=== PATIENT | female | born 1970 | race Two or more races ===

== ENCOUNTER 2018-09-18 15:00 | Outpatient (AMBR) | payer MEDICAID, SELFPAY ==
--- NOTE | 2018-09-03 14:06 | PTNOTE_ITS ---
PT OP Initial Eval Patient Information Visit Reasons: arm Medical Diagnosis: M62.81 Treatment Dx #1: R UE pain Start of Care: 09/03/18 Date of Onset: 3 yrs ago Initial Assessment Subjective Pt is 47 yr old japanese speaking female s/p R lung cancerous resection R lung x3 yrs. Since then she has had R shoulder pain and difficulty lifting the UE. Today the pain level is 6/10 that increases to 8/10 sometimes. She had been working in the [employer] when the cancer was found. PMH: allergies, HTN Imaging: CT of chest in EMR Pt goal: less shoulder pain and improved OH reach. Objective R shoulder AROM: FF: 85 deg Abd: 85 deg ER: 75 deg HBB: to R glute with pain Strength: 3-/5 in all planes PROM: end-range pain with capsular tightness C/S AROM: L rot: 50 deg, R 46 deg Extension: 30 deg with pain R SB: 14 deg, L SB: 13 deg R ULTT medial n: positive TTP: R upper quadrant, along incision scar moderate Assessment Pt presents with decreased shoulder ROM, strength and OH reach limited by pain and R UQ tightness in axilla region s/p cancerous excision thoracotomy. She has incision scar tightness and TTP that limits shoulder ROM. Pt has C/S ROM limitations with rotation and extension. Short Term and [employer] Goals 1. Ind with HEP 2. Improved AROM of R shoulder to 135 deg FF, 125 deg abduction and 90 deg ER 3. Improved HBB ROM to L3 4. Pt will reach OH x10 with <=4/10 pain Treatment Plan 1. Manual therapy 2. Therex 3. Modalities as indicated, moist heat pack, ice, electrical stimulation, Frequency and Duration 2x a week for 6 weeks Certification Dates: 09/03/18 to 12/04/18 Office Procedures PT Procedures PT Date of Service: 09/03/18 OP PT Eval Mod Complex 30 minutes: Yes
--- NOTE | 2018-09-08 18:48 | PT.ODAYNRPT ---
PT Outpatient Daily Note Date of Service: September 08, 2018 OP Daily Note Visit Reasons: arm Outpatient Physical Therapy Treatment Date: 09/08/18 Subjective: About the same as time of eval Objective: See F/S for therex MT: STM to R incision scar and T/S x10' Assessment: Moderate tissue irritability and myofascial tightness around incision limits manual therapy tolerance and ROM of R shoulder. Plan: Continue per POC Length of Time (minutes) of Treatment: 30 Minutes Office Procedures PT Procedures PT Date of Service: 09/03/18 OP PT Eval Mod Complex 30 minutes: Yes PT Procedures PT Date of Service: 09/08/18 Therapeutic Exercise 15 minutes: Yes Manual Meat Process Worker 15 minutes: Yes
--- NOTE | 2018-09-10 19:00 | PTNOTE_ITS ---
PT Outpatient Daily Note Date of Service: September 10, 2018 OP Daily Note Visit Reasons: arm Outpatient Physical Therapy Treatment Date: 09/10/18 Subjective: My back was sore after last visit Objective: See F/S for therex MT: STM to R incision scar and T/S x10' Assessment: Moderate tissue irritability and myofascial tightness around incision limits manual therapy tolerance and ROM of R shoulder. Plan: Continue per POC Length of Time (minutes) of Treatment: 30 Minutes Office Procedures PT Procedures PT Date of Service: 09/03/18 OP PT Eval Mod Complex 30 minutes: Yes PT Procedures PT Date of Service: 09/08/18 Therapeutic Exercise 15 minutes: Yes Manual Technical Systems Architect 15 minutes: Yes PT Procedures PT Date of Service: 09/10/18 Therapeutic Exercise 15 minutes: Yes Manual Technical Systems Architect 15 minutes: Yes
--- NOTE | 2018-09-18 16:53 | PT.ODAYNRPT ---
PT Outpatient Daily Note Date of Service: September 18, 2018 OP Daily Note Visit Reasons: arm Outpatient Physical Therapy Treatment Date: 09/18/18 Subjective: pt states she can move a little more since starting PT but still has some pain. pt gets cramps on the hand and makes her drop what she has in her hands. Objective: see flow sheet. Assessment: added new exercises using thera band in which caused muscle fatigue but she was able to complete all ther ex. she demonstrates good ROM of the shoulder in flexion and ABD. she had difficulty with rows as she tends to extend the elbows. she does good for the 1st few reps then goes back to extending the elbows. informed pt about possible soreness. Plan: continue POC per PT. Length of Time (minutes) of Treatment: 30 Minutes Office Procedures PT Procedures PT Date of Service: 09/03/18 OP PT Eval Mod Complex 30 minutes: Yes PT Procedures PT Date of Service: 09/08/18 Therapeutic Exercise 15 minutes: Yes Manual Clinical Nursing Director 15 minutes: Yes PT Procedures PT Date of Service: 09/10/18 Therapeutic Exercise 15 minutes: Yes Manual Clinical Nursing Director 15 minutes: Yes PT Procedures PT Date of Service: 09/18/18 Therapeutic Exercise 30 minutes: Yes
== END 2018-09-28 23:59 | disposition home or self-care (01) ==
PROVIDERS: PCP Physician Assistant; Referring Provider Physician Assistant; Visit Provider Physician Assistant
DX: M62.81 Muscle weakness (generalized) (principal); M25.511 Pain in right shoulder
CPT/HCPCS: 97110; 97140; 97162